=== PATIENT | male | born 1965 | race Caucasian/White ===

== ENCOUNTER 2017-09-16 16:28 | Emergency (ER) | payer OTHER ==
[~2017-09-16] VITALS: Ht 167.6 cm; Wt 68.0 kg
[~2017-09-16 16:28] MED LIST: ADDERALL 30 MG30 MG PO; AZITHROMYCIN 2250 MG PO; CYCLOBENZAPRINE5 MG PO; DIAZEPAM 10 MG10 M2 PO; GLUCOSE4 GM PO; HUMALOG100 UNIT/1 SUBQ; MELATONIN5 M1 PO; OXYCONTIN15 MG PO; VALIUM5 MG PO
[2017-09-16] MEDS ORDERED: KEFLEX500 M1 PO (16:37)
[2017-09-16] MEDS ORDERED: BACTRIM DS TAB1 EACH PO (16:37)
[2017-09-16 17:26] VITALS: BP 143/78
== END 2017-09-16 17:27 | disposition home or self-care (01) ==
LOC: ER 16:28
DX: L02.413 Cutaneous abscess of right upper limb (principal); E11.9 Type 2 diabetes mellitus without complications

== ENCOUNTER 2020-02-06 08:39 | Emergency (ER) | payer OTHER ==
[~2020-02-06] VITALS: Ht 175.3 cm; Wt 77.1 kg
[~2020-02-06 08:39] MED LIST changes: +BACTRIM DS TAB1 EACH PO; +KEFLEX500 M1 PO
[2020-02-06] MEDS ORDERED: KEFLEX500 M1 PO (13:02)
[2020-02-06] MEDS ORDERED: BACTRIM DS TAB1 EACH PO ×2 (13:02→13:16)
[2020-02-06 13:37] VITALS: BP 112/70
== END 2020-02-06 13:38 | disposition home or self-care (01) ==
LOC: ER 08:39
DX: L02.415 Cutaneous abscess of right lower limb (principal); E11.9 Type 2 diabetes mellitus without complications; Z79.899 Other long term (current) drug therapy